=== PATIENT | female | born 1995 | race Two or more races ===

== ENCOUNTER 2018-05-05 02:00 | Emergency (ER) | payer SELFPAY ==
[~2018-05-05] VITALS: Ht 165.1 cm; Wt 56.7 kg
[2018-05-05 02:00] VITALS: BP 119/67
--- NOTE | 2018-05-05 02:00 | NUR ---
ED Nurse Note: RECIEVED PT HILDA FROM HOME WITH C/O INTERMITTENT CHEST PAIN FOR PAST 4 DAYS, TODAY PAIN IS WORSE, AWAKENED HER AND NOW WITH LEFT ARM NUMBNESS, PAIN DESCRIBED PRESSURE FRRLING AT 5/10, ALSO WITH NAUSEA, PT STATES SHE HAD DIARRHEA FIRST THEN CP, PT ASSISTED WITH GOWNING AND MONITORING, WILL RESUME CARE ORDERD AND CONTINUE TO CLOSELY MONITOR.
[2018-05-05] MEDS ORDERED: Acetaminophen 500mg (ES) tab ORAL ONE (02:15)
[2018-05-05 02:26] LABS: EOSINOPHILS % (AUTO) 0.2 % (0.0-3.0); HEMATOCRIT 42.1 % (37.0-47.0); HEMOGLOBIN 14.2 G/DL (12.0-16.0); MEAN CORPUSCULAR VOLUME 86 FL (80-99); MONOCYTES % (AUTO) 4.3 % (1.0-10.0); NEUTROPHILS % (AUTO) 76.5 % (45.0-75.0); PLATELET COUNT 214 K/UL (150-450); RED CELL DISTRIBUTION WIDTH 11.6 % (11.6-14.8); WHITE BLOOD COUNT 8.6 K/UL (4.8-10.8)
--- NOTE | 2018-05-05 02:33 | Emergency Room Report ---
History of Present Illness General Chief Complaint: Chest Pain Source: Patient (Chris Baez MD) Present Illness HPI Is a 22-year-old female with no past medical history. She presents with chief complaint of chest pain and palpitation. Onset around 5 PM. She felt her heart beating fast and then developed sharp chest pain. Lasting only a few minutes. Also felt nauseous. No diaphoresis. No shortness of breath. No exertional component. No radiation. Now also having diarrhea. No urinary complaint. Chest pain is 7 out of 10 sharp in nature. Does not felt stressed or anxious. (Chris Baez MD) Allergies: Coded Allergies: No Known Allergies (Unverified , 05/05/18) Patient History Past Medical History: none, see triage record, old chart reviewed Past Surgical History: none Pertinent Family History: none Social History: Denies: smoking Last Menstrual Period: 04/13/18 Now: No Immunizations: other Reviewed Nursing Documentation: PMH: Agreed; PSxH: Agreed (Chris Baez MD) Nursing Documentation-PMH Past Medical History: No Stated History (Chris Baez MD) Review of Systems Eye: Denies: eye pain, blurred vision ENT: Denies: ear pain, nose congestion, throat swelling Respiratory: Denies: cough, shortness of breath Cardiovascular: Reports: chest pain, palpitations Gastrointestinal: Reports: diarrhea, nausea; Denies: abdominal pain, vomiting Musculoskeletal: Denies: back pain, joint pain Skin: Denies: rash Neurological: Denies: headache, numbness Endocrine: Denies: increased thirst, increased urine Hematologic/Lymphatic: Denies: easy bruising All Other Systems: negative except mentioned in HPI (Chris Baez MD) Physical Exam Vital Signs Date Time Temp Pulse Resp B/P (MAP) Pulse Ox O2 Delivery O2 Flow Rate FiO2 05/05/18 01:50 99.0 123 18 145/88 98 Room Air vitals with tachycardia Sp02 EP Interpretation: reviewed, normal General Appearance: well appearing, no apparent distress, alert Head: normocephalic, atraumatic Eyes: bilateral eye PERRL, bilateral eye EOMI ENT: hearing grossly normal, normal pharynx Neck: full range of motion, supple, no meningismus Respiratory: chest non-tender, lungs clear, normal breath sounds Cardiovascular #1: regular rate, rhythm, no murmur Gastrointestinal: normal bowel sounds, non tender, no mass, no organomegaly, no bruit, non-distended Musculoskeletal: back normal, gait/station normal, normal range of motion Neurologic: alert, oriented x3 Psychiatric: mood/affect normal Skin: warm/dry, other - Patient felt warm to the touch (Chris Baez MD) Medical Decision Making Diagnostic Impression: Primary Impression: Chest pain Qualified Codes: R07.9 - Chest pain, unspecified Additional Impression: Palpitations ER Course Patient presents with palpitation and chest pain. Initially her heart rate was in the 120s. This is a sinus tachycardia. Sometime at jumped up to 130s. On the monitor continued to show sinus tachycardia. No SVT. No delta wave. Labs are normal. Normal d-dimer. No drugs. Thyroid function normal. Patient does felt warm to the touch but the highest temperature was 99. Patient does complaining of nausea and some diarrhea. Questionable early gastroenteritis/ flulike illness. After 2 L of IV fluid heart rate came down to the low 100s. Occasional we'll jumped back up to 110s. because of this, we'll get CT to r/o PE even though Ddimer is neg. (Chris Baez MD) ER Course Patient endorsed to me by Dr. Baez. Patient was noted to have palpitations as well as some chest discomfort. Patient reports having been drinking some dieters tea as well as some large amounts of green tea. EKG showed sinus tachycardia with incomplete right bundle branch block rate of 121 with a left anterior fascicular block. She was given magnesium as well as IV bicarbonate. Patient was advised to follow-up with cardiology Labs Test 05/05/18 02:00 05/05/18 03:30 White Blood Count 8.6 K/UL (4.8-10.8) Red Blood Count 4.90 M/UL (4.20-5.40) Hemoglobin 14.2 G/DL (12.0-16.0) Hematocrit 42.1 % (37.0-47.0) Mean Corpuscular Volume 86 FL (80-99) Mean Corpuscular Hemoglobin 29.1 PG (27.0-31.0) Mean Corpuscular Hemoglobin Concent 33.8 G/DL (32.0-36.0) Red Cell Distribution Width 11.6 % (11.6-14.8) Platelet Count 214 K/UL (150-450) Mean Platelet Volume 7.6 FL (6.5-10.1) Neutrophils (%) (Auto) 76.5 % (45.0-75.0) Lymphocytes (%) (Auto) 18.0 % (20.0-45.0) Monocytes (%) (Auto) 4.3 % (1.0-10.0) Eosinophils (%) (Auto) 0.2 % (0.0-3.0) Basophils (%) (Auto) 1.0 % (0.0-2.0) D-Dimer 0.27 mg/L FEU (0.00-0.49) Sodium Level 138 MMOL/L (136-145) Potassium Level 3.7 MMOL/L (3.5-5.1) Chloride Level 103 MMOL/L (98-107) Carbon Dioxide Level 22 MMOL/L (21-32) Anion Gap 13 mmol/L (5-15) Blood Urea Nitrogen 10 mg/dL (7-18) Creatinine 0.8 MG/DL (0.55-1.30) Estimat Glomerular Filtration Rate > 60 mL/min (>60) Glucose Level 133 MG/DL (74-106) Calcium Level 9.6 MG/DL (8.5-10.1) Thyroid Stimulating Hormone (TSH) 2.223 uiU/mL (0.358-3.740) Free Thyroxine 0.99 NG/DL (0.76-1.46) Urine Color Pale yellow Urine Appearance Clear Urine pH 6 (4.5-8.0) Urine Specific [place] 1.005 (1.005-1.035) Urine Protein Negative (NEGATIVE) Urine Glucose (UA) Negative (NEGATIVE) Urine Ketones Negative (NEGATIVE) Urine Blood Negative (NEGATIVE) Urine Nitrite Negative (NEGATIVE) Urine Bilirubin Negative (NEGATIVE) Urine Urobilinogen Normal MG/DL (0.0-1.0) Urine Leukocyte Esterase Negative (NEGATIVE) Urine RBC 0-2 /HPF (0 - 2) Urine WBC 0-2 /HPF (0 - 2) Urine Squamous Epithelial Cells Few /LPF (NONE/OCC) Urine Bacteria None /HPF (NONE) Urine HCG, Qualitative Negative (NEGATIVE) Urine Opiates Screen Negative (NEGATIVE) Urine Barbiturates Screen Negative (NEGATIVE) Phencyclidine (PCP) Screen Negative (NEGATIVE) Urine Amphetamines Screen Negative (NEGATIVE) Urine Benzodiazepines Screen Negative (NEGATIVE) Urine Cocaine Screen Negative (NEGATIVE) Urine Marijuana (THC) Screen Negative (NEGATIVE) (Vikram Pastor MD) EKG Diagnostic Results Rate: tachycardiac Rhythm: NSR ST Segments: no acute changes (Chris Baez MD) Rhythm Strip Diag. Results EP Interpretation: yes Rate: 100 Rhythm: NSR, no PVC's, no ectopy (Chris Baez MD) CT/MRI/US Diagnostic Results CT/MRI/US Diagnostic Results : Imaging Test Ordered: CT chest Impression negative per radiologist (Chris Baez MD) Last Vital Signs Date Time Temp Pulse Resp B/P (MAP) Pulse Ox O2 Delivery O2 Flow Rate FiO2 05/05/18 01:50 99.0 123 18 145/88 98 Room Air Status: improved (Chris Baez MD) Status: improved (Vikram Pastor MD) Disposition: HOME, SELF-CARE Condition: Stable Additional Instructions: Follow-up with your DrRhianna in 2-3 days. You may need a referral to see a marble supervisor for Holter monitor. Return if symptom worsen. Chris Baez MD May 05, 2018 02:33 Vikram Pastor MD May 05, 2018 07:32
[2018-05-05 02:43] LABS: ANION GAP 13 mmol/L (5-15); BLOOD UREA NITROGEN 10 mg/dL (7-18); CALCIUM 9.6 MG/DL (8.5-10.1); CARBON DIOXIDE 22 MMOL/L (21-32); CHLORIDE 103 MMOL/L (98-107); CREATININE 0.8 MG/DL (0.55-1.30); POTASSIUM 3.7 MMOL/L (3.5-5.1); SODIUM 138 MMOL/L (136-145)
[2018-05-05 03:30] VITALS: BP 143/68
[2018-05-05 03:43] LABS: APPEARANCE,URINE CLEAR; BILIRUBIN, URINE NEGATIVE (NEGATIVE); COLOR,URINE PALE YELLOW; GLUCOSE, URINE (UA) NEGATIVE (NEGATIVE); KETONES,URINE NEGATIVE (NEGATIVE); LEUKOCYTE ESTERASE ,URINE NEGATIVE (NEGATIVE); NITRITE,URINE NEGATIVE (NEGATIVE); PH,URINE 6 (4.5-8.0); PROTEIN,URINE NEGATIVE (NEGATIVE); UROBILINOGEN,URINE NORMAL MG/DL (0.0-1.0)
--- NOTE | 2018-05-05 04:00 | NUR ---
ED Nurse Note: PT MEDICATED ORDERED, MEDS EFFECTIVE FOR SHORT TIME THEN RETURNS, PT RESTING IN BED QUIETLY, HEART RATE FLUCTUATING FROM 90'S TO ABOUT 130'S AT TIMES, PT APPEARS ANXIOUS, EYES TWITCHING AND STATES HAS HISTORY OF PAINC ATTACKS AND ANXIETY ALSO, IV SITE PATENT, FLUIDS COMPLETED, PT REMAINS ON MONITORING, WILL CONTINUE TO CLOSELY MONITOR.
[2018-05-05] MEDS ORDERED: Isovue-370 150ml vial INJ PRN (04:45)
[2018-05-05 05:15] VITALS: BP 124/68
--- NOTE | 2018-05-05 05:35 | NUR ---
ED Nurse Note: PT RETURNED FROM IMAGING, NO CHANGES OR INCREASED DISTRESS, IV SITE PATENT, PAIN AT 3/10 IN CHEST, NO NAUSEA, WILL CONTINUE TO MONITOR WHILE WAITING FOR DISPOSITION AND RESULTS.
--- NOTE | 2018-05-05 06:15 | NUR ---
ED Nurse Note: RADIOLOGY CALLED TO NOTIFY US TECH OF PENDING ORDER.
[2018-05-05] MEDS ORDERED: Sodium Bicarbonate 50ml Carp IV ONE (07:30)
--- NOTE | 2018-05-05 08:06 | Diagnostic Imaging Report ---
EXAM: CT Angiography Chest With Intravenous Contrast CLINICAL HISTORY: Chest pain TECHNIQUE: Axial computed tomographic angiography images of the chest with intravenous contrast using pulmonary embolism protocol. CTDI is 27.46 mGy and DLP is 720 mGy-cm. One or more of the following dose reduction techniques were used: automated exposure control, adjustment of the mA and/or kV according to patient size, use of iterative reconstruction technique. 3D and MIP reconstructed images were created and reviewed. Coronal and sagittal reformatted images were created and reviewed. CONTRAST: 100 cc Omnipaque 350 COMPARISON: No relevant prior studies available. FINDINGS: Pulmonary arteries: Main pulmonary artery normal in caliber (2.2 cm). No filling defects to suggest acute pulmonary embolism. Aorta: No acute findings. No thoracic aortic aneurysm. Lungs: Left lower lobe granuloma without focal consolidation. Pleural space: No pleural effusion or pneumothorax. Heart: Unremarkable. No cardiomegaly. No significant pericardial effusion. No evidence of RV dysfunction. Bones/joints: No acute fracture. No dislocation. Soft tissues: Unremarkable. Lymph nodes: Unremarkable. No enlarged lymph nodes. IMPRESSION: 1. No acute pulmonary embolism. 2. No focal consolidation, pleural effusion, or pneumothorax. 3. No thoracic aortic aneurysm or pericardial effusion.
--- NOTE | 2018-05-05 08:07 | NUR ---
ED Nurse Note: New iv line was made on Lt hand with 20 G. Lt AC iv line still present and working with iv push but not with iv pump machine.
[2018-05-05 08:10] VITALS: BP 124/72
--- NOTE | 2018-05-05 08:13 | NUR ---
ED Nurse Note: Received patient in bed, aao x4 and no s/s of cardiac or pulmonary distress. pt's HR fluctuating and ERMD aware of it. pt is on Mg sulfate 1g at 100ml/hr. pt stable and the most recent vital signs have been documented. pt denied chest pain at this moment. pt stated 0/10 for chest pain.
[2018-05-05] MEDS ORDERED: Albuterol/Ipratropium 3ml neb HHN ONE (09:30)
--- NOTE | 2018-05-05 09:53 | NUR ---
ED Nurse Note: pt was provided breakfast and it is at the bedside. pt stated "I will eat later."
--- NOTE | 2018-05-05 10:03 | NUR ---
ED Nurse Note: pt currently having breakfast in bed. will be discharged after finishing eating.
[2018-05-05 10:24] VITALS: BP 124/72
--- NOTE | 2018-05-05 10:26 | NUR ---
ER DISCHARGE NOTE: Patient is cleared to be discharged per ERMD, pt is aox4, on room air, with stable vital signs. pt was given dc instructions, pt was able to verbalize understanding, pt id band and iv site removed without complications. pt is able to ambulate with steady gait. pt took all belongings.
== END 2018-05-05 10:27 | disposition home or self-care (01) ==
LOC: EDBD 02:00 → EMR 04:31
DX: R07.9 Chest pain, unspecified (principal); R00.2 Palpitations
CPT/HCPCS: 36415; 71275; 80048; 80307; 81001; 81025; 84439; 84443; 84484; 85025; 85379; 93005; 94640; 94664; 96361; 96365; 96375; 99284; Q9967; J7620